=== PATIENT | male | born 1975 | race Caucasian/White ===

== ENCOUNTER 2019-08-24 04:56 | Emergency (ER) | payer OTHER ==
[2019-08-24 05:50] LABS: Absolute Lymphocytes (CBC) 2.4 K/uL (0.7-4.9); Basophils % 0.8 % (0-1.3); Hematocrit 38.6 % (39.6-49.0); Lymphocytes % 22.8 % (15.3-44.8); MPV 9.2 fL (7.6-11.3); RBC Red Blood Cell Count 4.73 M/uL (4.33-5.43)
[2019-08-24] MEDS ORDERED: MORPHINE 4 MG/ML SYR ONE (05:53)
[2019-08-24] MEDS ORDERED: ONDANSETRON 4 MG/2 ML VIAL ONE (05:53)
[2019-08-24] MEDS ORDERED: FAMOTIDINE 20 MG/2 ML VIAL IV ONE (05:53)
[2019-08-24 06:25] LABS: ALT/SGPT 57 U/L (12-78); Albumin 4.1 g/dL (3.4-5.0); Alkaline Phosphatase 62 U/L (45-117); BUN Blood Urea Nitrogen 25 mg/dL (7-18); Bicarbonate 24 mmol/L (21-32); Bilirubin Direct < 0.1 mg/dL (0-0.2); Bilirubin Total 0.3 mg/dL (0.2-1.0); Glucose Level 111 mg/dL (74-106); Lipase 75 U/L (73-393); Protein, Total 7.2 g/dL (6.4-8.2); Sodium Level 141 mmol/L (136-145)
[2019-08-24 06:26] LABS: AST/SGOT 32 U/L (15-37); Potassium 4.2 mmol/L (3.5-5.1)
[2019-08-24 06:45] LABS: Urine Blood NEGATIVE (NEG); Urine Glucose NEGATIVE (NEG); Urine Protein NEGATIVE (NEG); Urine Specific Gravity >1.030 (1.005-1.030); Urine pH 5.5 (5.0-7.0)
--- NOTE | 2019-08-24 07:20 | RAD REPORT ---
EXAM DESCRIPTION: CTAbdomen Pelvis W Contrast - 08/24/2019 7:09 am CLINICAL HISTORY: Abdominal pain. ABD PAIN COMPARISON: Spine Lumbar Wo Con dated 08/24/2019; Thoracic Spine W/o Cont dated 08/24/2019 TECHNIQUE: Biphasic CT imaging of the abdomen and pelvis was performed with 100 ml non-ionic IV cont rast. All CT scans are performed using dose optimization technique as appropriate and may include automated exposure control or mA/KV adjustment according to patient size. FINDINGS: The lung bases are clear. The liver demonstrates diffuse fatty infiltration. Spleen, pancreas, adrenal glands and right kidney are within normal limits. Exophytic benign-appearing cyst left kidney measuring 25 mm projecting late rally. No bowel obstruction, free air, free fluid or abscess. Prominent diverticulosis of the sigmoid colon is present. No definitive evidence of diverticulitis The appendix is normal. No evidence of signific ant lymphadenopathy. No suspicious bony findings. IMPRESSION: Diffuse fatty liver. Prominent sigmoid diverticulosis colon without definitive evidence of diverticulitis.
--- NOTE | 2019-08-24 07:22 | RAD REPORT ---
EXAM DESCRIPTION: CT - Thoracic Spine W/o Cont - 08/24/2019 7:08 am CLINICAL HISTORY: Radiculopathy. PAIN COMPARISON: No comparisons TECHNIQUE: Axial CT imaging through the thoracic spine was performed with coronal and sagittal re-fo rmatted images. All CT scans are performed using dose optimization technique as appropriate and may include automated exposure control or mA/KV adjustment according to patient size. FINDINGS: Vertebral body heights are maintained. A compression fracture is not present. Mild disc th inning throughout the thoracic spine particularly in the midthoracic levels with small endplate osteo phytes compatible with mild spondylosis. Thoracic spine alignment is within normal limits. No paraspinal masses or hematoma. Intervertebral disc detail is inherently limited on CT without gross findings of canal compromise. IMPRESSION: No acute thoracic spine abnormality discerned. Mild midthoracic spondylosis.
--- NOTE | 2019-08-24 07:23 | RAD REPORT ---
EXAM DESCRIPTION: CT - Spine Lumbar Wo Con - 08/24/2019 7:08 am CLINICAL HISTORY: Radiculopathy. PAIN COMPARISON: No comparisons TECHNIQUE: Axial noncontrast CT imaging of the lumbar spine was performed with coronal and sagittal re-formatted images. All CT scans are performed using dose optimization technique as appropriate and may include automated exposure control or mA/KV adjustment according to patient size. FINDINGS: No acute lumbar spine fracture seen. No aggressive marrow pattern or malalignment. Paraspinal tissues are normal in thickness. No paraspinal abscess or hematoma seen. Mild posterior disc bulges are seen lower lumbar levels. Prominent facet hypertrophy is present L5-S1 bilaterally. IMPRESSION: No acute lumbar spine abnormality. Mild lower lumbar spondylosis is suspected.
--- NOTE | 2019-08-24 07:40 | ER ---
Nurse's Notes [facility] Name: Ciaran Jean-Baptiste Age: 43 yrs Sex: Male : 1975 Arrival Date: 08/24/2019 Time: 04:59 Bed 5 Private MD: Diagnosis: Low back pain;Abdominal and pelvic pain Presentation: 08/23 05:10 Chief complaint: Patient states: Hx of chronic back pain which was service related. Now wh progressively getting worse this past few days. Pt C/O burning, sharp, radiating pain that makes him have bowel urges. Coronavirus screen: Proceed with normal triage. Patient denies a cough. Patient denies shortness of breath or difficulty breathing. Patient denies measured and/or subjective temperature greater than 100.4F prior to today's visit. Patient denies travel on a cruise ship or to a country the [facility] currently lists as an affected area. Patient denies contact with known and/or suspected case of COVID-19. Ebola Screen: Patient negative for fever greater than or equal to 101.5 degrees Fahrenheit, and additional compatible Ebola Virus Disease symptoms Patient denies exposure to infectious person. Initial Sepsis Screen: Does the patient meet any 2 criteria? HR > 90 bpm. Does the patient have a suspected source of infection? No. Patient's initial sepsis screen is negative. Risk Assessment: Do you want to hurt yourself or someone else? Patient reports no desire to harm self or others. Onset of symptoms was August 24, 2019. 05:10 Method Of Arrival: Ambulatory 05:10 Acuity: JOHNNY 3 Historical: - Allergies: 05:14 No Known Allergies; - Home Meds: 05:14 None [Active]; - PMHx: 05:14 Chronic Back Pain; Hypertension; High Cholesterol; - Immunization history:: Adult Immunizations unknown. - Social history:: Smoking status: Patient uses alcohol, admits to "couple of beers" a day. Patient/guardian denies using. Screenin:15 Abuse screen: Denies threats or abuse. Denies injuries from another. Nutritional screening: No deficits noted. Tuberculosis screening: No symptoms or risk factors identified. Fall Risk None identified. Assessment: 05:14 General: Appears in no apparent distress. Behavior is calm, cooperative, appropriate for age. Pain: Complains of pain in lumbar area, left mid back and right mid back Pain radiates to abdomen Pain currently is 8 out of 10 on a pain scale. Quality of pain is described as burning, aching, radiating, sharp. Neuro: Level of Consciousness is awake, alert, obeys commands, Oriented to person, place, time, situation, Appropriate for age. Cardiovascular: Capillary refill < 3 seconds. Respiratory: Airway is patent Respiratory effort is even, unlabored, Respiratory pattern is regular, symmetrical. GI: Abdomen is flat, non-distended. : No signs and/or symptoms were reported regarding the genitourinary system. EENT: No signs and/or symptoms were reported regarding the EENT system. Derm: Skin is intact, is healthy with good turgor, Skin is pink, warm \\T\\ dry. normal. Musculoskeletal: Circulation, motion, and sensation intact. 06:30 Reassessment: Patient appears in no apparent distress at this time. No changes from previously documented assessment. Patient and/or family updated on plan of care and expected duration. Pain level reassessed. Patient is alert, oriented x 3, equal unlabored respirations, skin warm/dry/pink. 07:27 Reassessment: Patient appears in no apparent distress at this time. Patient and/or em family updated on plan of care and expected duration. Pain level reassessed. Patient is alert, oriented x 3, equal unlabored respirations, skin warm/dry/pink. Patient states feeling better. Vital Signs: 05:10 BP 150 / 95; Pulse 96; Resp 18; Temp 98.5; Pulse Ox 99% ; Weight 99.79 kg; Height 5 ft. 6 in. (167.64 cm); Pain 8/10; 06:30 BP 115 / 88; Pulse 76; Resp 18; Pulse Ox 95% on R/A; 07:29 BP 137 / 93; Pulse 70; Resp 16; Pulse Ox 99% on R/A; Pain 5/10; em 05:10 Body Mass Index 35.51 (99.79 kg, 167.64 cm) ED Course: 04:59 Patient arrived in ED. ds1 05:00 Jael Albert is Primary Nurse. 05:12 Triage completed. 05:15 Arm band placed on right wrist. 05:15 Patient has correct armband on for positive identification. Bed in low position. Call light in reach. Side rails up X 1. Pulse ox on. NIBP on. 05:21 Ammon Abreu MD is Attending Physician. [facility] 05:30 Inserted saline lock: 20 gauge in right antecubital area, using aseptic technique. Blood collected. 07:06 Report received from RUKHSANA Elder. aleja 07:08 CT Thoracic Spine Wo Cont In Process Unspecified. EDMS 07:08 CT Lumbar Spine Wo Con In Process Unspecified. EDMS 07:09 CT Abd/Pelvis - IV Contrast Only In Process Unspecified. EDMS 07:20 Attending Physician role handed off by Ammon Abreu MD [facility] 07:20 Layo Gupta MD is Attending Physician. kdr 08:03 No provider procedures requiring assistance completed. IV discontinued, intact, em bleeding controlled, No redness/swelling at site. Pressure dressing applied. Administered Medications: 05:50 Drug: Pepcid 20 mg Route: IVP; Site: right antecubital; 07:27 Follow up: Response: No adverse reaction em 05:52 Drug: morphine 4 mg {Note: RASS 0.} Route: IVP; Site: right antecubital; 07:27 Follow up: Response: No adverse reaction; Marked relief of symptoms; Pain is decreased; em RASS: Alert and Calm (0) 05:54 Drug: Zofran (Ondansetron) 4 mg Route: IVP; Site: right antecubital; 07:27 Follow up: Response: No adverse reaction em Outcome: 07:39 Discharge ordered by . kdr 08:03 Discharged to home ambulatory. em 08:03 Condition: good 08:03 Discharge instructions given to patient, Instructed on discharge instructions, follow up and referral plans. medication usage, Demonstrated understanding of instructions, follow-up care, medications, Prescriptions given X 3. 08:05 Patient left the ED. em Signatures: Dispatcher [employer] [facility] Layo Gupta MD MD kdr Munoz, Edgar, RN RN em Sanford, Demi ds1 Bryson, James, RN RN Jael Fermin Ammon Abreu MD MD Alejandro
--- NOTE | 2019-08-24 07:40 | EDPHYS ---
Physician Documentation [facility] Name: Ciaran Jean-Baptiste Age: 43 yrs Sex: Male : 1975 Arrival Date: 08/24/2019 Time: 04:59 Bed 5 Private MD: ED Physician Layo Gupta HPI: 08/23 05:49 This 43 yrs old Male presents to ER via Ambulatory with complaints of Back mh7 Pain. 05:49 The patient presents with pain that is acute, with no known mechanism of injury. The mh7 symptoms are located in the lumbar area. Onset: The symptoms/episode began/occurred 3 day(s) ago. The pain radiates to the abdomen. Associated signs and symptoms: Pertinent positives: abdominal pain, Pertinent negatives: chest pain, constipation, dysuria, fever, headache, hematuria, incontinence, nausea, numbness, tingling, urinary retention, vomiting, weakness. The problem was sustained from unknown cause. Modifying factors: The patient symptoms are alleviated by nothing, the patient symptoms are aggravated by any movement. Severity of symptoms: At their worst the symptoms were moderate, last night, in the emergency department the symptoms are unchanged. The patient has experienced similar episodes in the past, multiple times. Historical: - Allergies: 05:14 No Known Allergies; - Home Meds: 05:14 None [Active]; - PMHx: 05:14 Chronic Back Pain; Hypertension; High Cholesterol; - Immunization history:: Adult Immunizations unknown. - Social history:: Smoking status: Patient uses alcohol, admits to "couple of beers" a day. Patient/guardian denies using. ROS: 05:49 Constitutional: Negative for fever, chills, and weight loss, Eyes: Negative for injury, mh7 pain, redness, and discharge, ENT: Negative for injury, pain, and discharge, Neck: Negative for injury, pain, and swelling, Cardiovascular: Negative for chest pain, palpitations, and edema, Respiratory: Negative for shortness of breath, cough, wheezing, and pleuritic chest pain, : Negative for injury, bleeding, discharge, and swelling, MS/Extremity: Negative for injury and deformity, Skin: Negative for injury, rash, and discoloration, Neuro: Negative for headache, weakness, numbness, tingling, and seizure, Psych: Negative for depression, anxiety, suicide ideation, homicidal ideation, and hallucinations, Allergy/Immunology: Negative for hives, rash, and allergies, Endocrine: Negative for neck swelling, polydipsia, polyuria, polyphagia, and marked weight changes, Hematologic/Lymphatic: Negative for swollen nodes, abnormal bleeding, and unusual bruising. Exam: 05:49 Constitutional: This is a well developed, well nourished patient who is awake, alert, mh7 and in no acute distress. Head/Face: Normocephalic, atraumatic. Eyes: Pupils equal round and reactive to light, extra-ocular motions intact. Lids and lashes normal. Conjunctiva and sclera are non-icteric and not injected. Cornea within normal limits. Periorbital areas with no swelling, redness, or edema. Neck: Trachea midline, no thyromegaly or masses palpated, and no cervical lymphadenopathy. Supple, full range of motion without nuchal rigidity, or vertebral point tenderness. No Meningismus. Chest/axilla: Normal chest wall appearance and motion. Nontender with no deformity. No lesions are appreciated. Cardiovascular: Regular rate and rhythm with a normal S1 and S2. No gallops, murmurs, or rubs. Normal PMI, no JVD. No pulse deficits. Respiratory: Lungs have equal breath sounds bilaterally, clear to auscultation and percussion. No rales, rhonchi or wheezes noted. No increased work of breathing, no retractions or nasal flaring. 05:49 Skin: Warm, dry with normal turgor. Normal color with no rashes, no lesions, and no evidence of cellulitis. MS/ Extremity: Pulses equal, no cyanosis. Neurovascular intact. Full, normal range of motion. Neuro: Awake and alert, GCS 15, oriented to person, place, time, and situation. Cranial nerves II-XII grossly intact. Motor strength 5/5 in all extremities. Sensory grossly intact. Cerebellar exam normal. Normal gait. Psych: Awake, alert, with orientation to person, place and time. Behavior, mood, and affect are within normal limits. 05:49 Abdomen/GI: Inspection: abdomen appears normal, obese Bowel sounds: normal, in all quadrants, Palpation: moderate abdominal tenderness, in the epigastric area and right upper quadrant, Rectal exam: the exam is deferred, because of patient request, Indicators: McBurney's point is not tender, Sheffield's sign is negative, Rovsing's sign is negative, Obturator sign is negative, Psoas sign is negative, Liver: no appreciated palpable abnormalities, Hernia: not appreciated. 05:49 Back: pain, that is moderate, of the lumbar area, ROM is painful, with all movement, normal spinal alignment noted, CVA tenderness, is absent, vertebral tenderness, is appreciated at lumbar area, muscle spasm, is not present, Straight leg raises: of both lower extremities does not illicit pain. 05:58 ECG was reviewed by the Attending Physician. [facility] Vital Signs: 05:10 BP 150 / 95; Pulse 96; Resp 18; Temp 98.5; Pulse Ox 99% ; Weight 99.79 kg; Height 5 ft. wh 6 in. (167.64 cm); Pain 8/10; 06:30 BP 115 / 88; Pulse 76; Resp 18; Pulse Ox 95% on R/A; wh 07:29 BP 137 / 93; Pulse 70; Resp 16; Pulse Ox 99% on R/A; Pain 5/10; em 05:10 Body Mass Index 35.51 (99.79 kg, 167.64 cm) MDM: 05:32 Patient medically screened. [facility] 07:37 Data reviewed: vital signs, nurses notes, lab test result(s), radiologic studies. kdr Counseling: I had a detailed discussion with the patient and/or guardian regarding: the historical points, exam findings, and any diagnostic results supporting the discharge/admit diagnosis, lab results, radiology results, the need for outpatient follow up. ED course: The patient is feeling better though not totally resolved pain. He states it is back to his usual level of chronic pain. 08/23 05:33 Order name: Basic Metabolic Panel; Complete Time: 06:32 7 08/23 05:33 Order name: CBC with Diff 7 08/23 05:33 Order name: Hepatic Function; Complete Time: 06:32 7 08/23 05:33 Order name: Lipase; Complete Time: 06:32 7 08/23 05:50 Order name: Urine Dipstick--Ancillary (enter results); Complete Time: 06:51 mw2 08/23 05:58 Order name: CT Thoracic Spine Wo Cont; Complete Time: 07:27 7 08/23 05:33 Order name: IV Saline Lock; Complete Time: 05:55 08/23 05:33 Order name: Labs collected and sent; Complete Time: 05:55 08/23 05:33 Order name: Urine Dipstick-Ancillary (obtain specimen); Complete Time: 05:55 08/23 05:58 Order name: CT Lumbar Spine Wo Con; Complete Time: 07:27 08/23 05:58 Order name: CT Abd/Pelvis - IV Contrast Only; Complete Time: 07: 08/23 05:33 Order name: EKG - Nurse/Tech; Complete Time: :55 mh EC:58 Rate is 80 beats/min. Rhythm is regular, Normal Sinus Rhythm. QRS [place] is Normal. AR mh7 interval is normal. QRS interval is normal. QT interval is normal. No Q waves. T waves are Normal. No ST changes noted. Clinical impression: Normal ECG. Administered Medications: 05:50 Drug: Pepcid 20 mg Route: IVP; Site: right antecubital; 07:27 Follow up: Response: No adverse reaction em 05:52 Drug: morphine 4 mg {Note: RASS 0.} Route: IVP; Site: right antecubital; 07:27 Follow up: Response: No adverse reaction; Marked relief of symptoms; Pain is decreased; em RASS: Alert and Calm (0) 05:54 Drug: Zofran (Ondansetron) 4 mg Route: IVP; Site: right antecubital; 07:27 Follow up: Response: No adverse reaction em Disposition: 08/24/19 07:39 Discharged to Home. Impression: Low back pain, Abdominal and pelvic pain. - Condition is Stable. - Discharge Instructions: Abdominal Pain, Adult, Back Pain, Adult. - Prescriptions for Robaxin 500 mg Oral Tablet - take 2 tablets by ORAL route every 6 hours As needed For night time use; 40 tablet. Tylenol- Codeine #3 300-30 mg Oral Tablet - take 2 tablets by ORAL route every 6 hours As needed For night time use; 16 tablet. Diclofenac Sodium 75 mg Oral Tablet, Delayed Release (E.C.) - take 1 tablet by ORAL route 2 times per day For daytime use; 30 tablet. - Medication Reconciliation Form, Thank You Letter, Prescription Opioid Use form. - Follow up: Private Physician; When: 2 - 3 days; Reason: If symptoms return, Further diagnostic work-up, Recheck today's complaints, Continuance of care, Re-evaluation by your physician. - Problem is an acute exacerbation. - Symptoms have improved. Signatures: Dispatcher [employer] Layo Saba MD MD kdr Scottie Perry, RN RN Jael Rogers Maurice, MD MD mh7 Corrections: (The following items were deleted from the chart) 08:05 07:39 08/24/2019 07:39 Discharged to Home. Impression: Low back pain; Abdominal and em pelvic pain. Condition is Stable. Forms are Medication Reconciliation Form, Thank You Letter, Antibiotic Education, Prescription Opioid Use. Follow up: Private Physician; When: 2 - 3 days; Reason: If symptoms return, Further diagnostic work-up, Recheck today's complaints, Continuance of care, Re-evaluation by your physician. Problem is an acute exacerbation. Symptoms have improved. kdr
[2019-08-24 08:13] VITALS: TEMP 98.5; O2SAT 99
[2019-08-24 08:16] VITALS: BP 137/93
[2019-08-24 10:05] LABS: Blood Morphology Comment NOT SEEN (NOT SEEN); Platelet Estimate ADEQ
--- NOTE | 2019-08-24 20:59 | EKG ---
Test Date: 2019-08-24 Test Time: 05:48:42 Dial Equipment Engineer: SOPHIE MEASUREMENT RESULTS: Intervals: Rate: 80 WA: 182 QRSD: 86 QT: 378 QTc: 435 [place]: P: 71 WA: 182 QRS: 45 T: 45 INTERPRETIVE STATEMENTS: Normal sinus rhythm with sinus arrhythmia Normal ECG No previous ECG available for comparison Electronically Signed On 08-24-19 20:57:00 CDT by Leonard Osborn
== END 2019-08-24 08:05 | disposition home or self-care (01) ==
LOC: ER 04:56
DX: R10.2 Pelvic and perineal pain (principal); I10 Essential (primary) hypertension; G89.29 Other chronic pain
CPT/HCPCS: 93005; 85025; 80048; 36415; 80076; 81003; 83690; 72131; 72128; 74177; 96375; 96374; 99284; Q9967; J2405

== ENCOUNTER 2019-10-25 11:29 | Emergency (ER) | payer OTHER ==
--- OUTSIDE RECORDS SUMMARY | 2019-10-25 11:31 | XMS REPORT | Continuity of Care Document ---
:1975 Author Organization [facility] t Address [address] [place] [address] Care Team Providers Name Role Phone Unavailable Unavailable Unavailable Problems This patient has no known problems. Allergies, Adverse Reactions, Alerts This patient has no known allergies or adverse reactions. Medications This patient has no known medications. Procedures This patient has no known procedures. Encounters Start End Encounter Admission Attending Care Care Encounter Source Date/Time Date/Time Type Type Clinicians Facility Department ID 2019-05-30 2019-05-30 Emergency E [id number] 10:30:00 10:30:00 Results This patient has no known results.
[2019-10-25 12:05] LABS: Basophils % 1.2 % (0-1.3); Hematocrit 38.7 % (39.6-49.0); Lymphocytes % 32.8 % (15.3-44.8); MPV 9.7 fL (7.6-11.3)
--- NOTE | 2019-10-25 12:14 | RAD REPORT ---
EXAM DESCRIPTION: RAD - Chest Single View - 10/25/2019 11:58 am CLINICAL HISTORY: Cough;Dyspnea COMPARISON: None TECHNIQUE: AP portable chest image was obtained 10/25/2019 11:58 am . FINDINGS: Lungs are clear. Heart and vasculature are normal. No measurable pleural effusion and no p neumothorax. No acute bony abnormality seen. No acute aortic findings suspected. IMPRESSION: No acute cardiopulmonary process. Fullness of the left hilum is probably normal summation of vasculature. As warranted, follow-up two v iew imaging could be performed.
[2019-10-25 12:18] LABS: BUN Blood Urea Nitrogen 23 mg/dL (7-18); Bicarbonate 25 mmol/L (21-32); Glucose Level 131 mg/dL (74-106); Sodium Level 142 mmol/L (136-145); Troponin (Emerg Dept Use Only) < 0.02 ng/mL (0.0-0.045)
[2019-10-25 12:23] LABS: NT PRO-BNP < 5 pg/mL (<125)
--- NOTE | 2019-10-25 12:49 | RAD REPORT ---
EXAM DESCRIPTION: CT - Soft Tissue Neck W/Contr CLINICAL HISTORY: trouble swallowing Dysphagia, neck pain and swelling COMPARISON: Thoracic Spine W/o Cont dated 08/24/2019; Abdomen Pelvis W Contrast dated 08/24/[address] scans are performed using dose optimization technique as appropriate and may includ e automated exposure control or mA/KV adjustment according to patient size. FINDINGS: Nasopharyngeal tissues are normal in appearance. Fossa Rosenmller are normal. Small tonsilliths are present bilaterally in the palatine tonsils. No bulky adenopathy in the neck. Salivary glands are normal in appearance. No prevertebral fluid collections. Multilevel mild degenerative changes affect the cervical spine tricia ear IMPRESSION: No significant abnormality discerned.
--- NOTE | 2019-10-25 13:04 | EDPHYS ---
Physician Documentation [facility] Name: Ciaran Jean-Baptiste Age: 43 yrs Sex: Male : 1975 Arrival Date: 10/25/2019 Time: 11:31 Bed 2 Private MD: ED Physician Severo Oliveros HPI: 10/24 12:56 This 43 yrs old Male presents to ER via EMS with complaints of Dizziness, rn Shortness Of Breath. 12:56 The patient has shortness of breath at rest, that woke him/her from sleep. Onset: The rn symptoms/episode began/occurred 9 month(s) ago. Duration: The symptoms are intermittent. The patient's shortness of breath is aggravated by swallowing. Severity of symptoms: At their worst the symptoms were moderate in the emergency department the symptoms have improved. The patient has experienced similar episodes in the past. Reports sob, states for last 9 months wake sup from sleep, feels like can't swallow his spit, then feels like sob, goes away on its own when he stands up and makes himself swallow. No fever. NO weight loss. Reports has been told needs ENT evaluation for this problem, but is [facility] and states still waiting on appointment. Was at work today and had another episode of trouble swallowing and then began to feel sob, resolved by time he got here, no meds given by EMS. Denies chest pain. + long time smoker in past. . Historical: - Allergies: 11:20 No Known Allergies; rb1 - Home Meds: 11:20 Multiple Vitamins oral oral [Active]; Vitamin C Oral [Active]; Fish Oil oral oral rb1 [Active]; - PMHx: 11:20 chronic back pain; High Cholesterol; Hypertension; IBS; Acid Reflux; chronic Bronchitis;rb1 - PSHx: 11:20 None; rb1 - Immunization history:: Adult Immunizations up to date. - Social history:: Smoking status: Patient/guardian denies using. - Family history:: not pertinent. - Hospitalizations: : No recent hospitalization is reported. ROS: 12:56 Constitutional: Negative for fever, chills, and weight loss, Eyes: Negative for injury, rn pain, redness, and discharge, Cardiovascular: Negative for chest pain, palpitations, and edema, Respiratory: Negative for wheezing, and pleuritic chest pain, Abdomen/GI: Negative for abdominal pain, nausea, vomiting, diarrhea, and constipation, MS/Extremity: Negative for injury and deformity, Skin: Negative for injury, rash, and discoloration, Neuro: Negative for headache, weakness, numbness, tingling, and seizure. Exam: 12:17 ECG was reviewed by the Attending Physician. rn 12:56 Constitutional: This is a well developed, well nourished patient who is awake, alert, rn and in no acute distress. Head/Face: Normocephalic, atraumatic. Eyes: Pupils equal round and reactive to light, extra-ocular motions intact. Lids and lashes normal. Conjunctiva and sclera are non-icteric and not injected. Cornea within normal limits. Periorbital areas with no swelling, redness, or edema. ENT: No stridor Neck: Trachea midline, no thyromegaly or masses palpated, and no cervical lymphadenopathy. Supple, full range of motion without nuchal rigidity, or vertebral point tenderness. No Meningismus. Cardiovascular: Regular rate and rhythm. No pulse deficits. Respiratory: Speaking full sentences. Unlabored. No increased work of breathing, no retractions or nasal flaring. Abdomen/GI: soft, non-tender MS/ Extremity: Pulses equal, no cyanosis. Neurovascular intact. Full, normal range of motion. Equal circumference. Neuro: Awake and alert, GCS 15, oriented to person, place, time, and situation. Cranial nerves II-XII grossly intact. Motor strength 5/5 in all extremities. Sensory grossly intact. Vital Signs: 11:20 BP 157 / 107; Pulse 92; Resp 20; Temp 97.8(O); Pulse Ox 97% on R/A; Weight 107.05 kg rb1 (R); Height 5 ft. 6 in. (167.64 cm) (R); Pain 5/10; 12:30 BP 132 / 91; Pulse 91; Resp 19; Pulse Ox 95% on R/A; rb1 13:04 BP 124 / 87; Pulse 91; Resp 20; Pulse Ox 95% on R/A; rb1 11:20 Body Mass Index 38.09 (107.05 kg, 167.64 cm) rb1 MDM: 11:35 Patient medically screened. rn 12:56 Differential diagnosis: smoking related problems, acid reflux with dysphagia/esophageal rn stricture. Anxiety. Vocal chord problem. Data reviewed: vital signs, nurses notes. 13:02 Counseling: I had a detailed discussion with the patient and/or guardian regarding: the rn historical points, exam findings, and any diagnostic results supporting the discharge/admit diagnosis, lab results, radiology results, the need for outpatient follow up, to return to the emergency department if symptoms worsen or persist or if there are any questions or concerns that arise at home. Response to treatment: the patient's symptoms have markedly improved after treatment, the patient's condition has returned to base line, the patient is now symptom free, and as a result, I will discharge patient. Special discussion: I discussed with the patient/guardian in detail that at this point there is no indication for admission to the hospital. It is understood, however, that if the symptoms persist or worsen the patient needs to return immediately for re-evaluation. Based on the history and exam findings, there is no indication for further emergent testing or inpatient evaluation. I discussed with the patient/guardian the need to see the ENT specialist for further evaluation of the symptoms. I discussed with the patient/guardian the need to see the lead c developer for further evaluation of the symptoms. 10/24 11:36 Order name: CBC with Diff; Complete Time: 12:17 10/24 11:36 Order name: Basic Metabolic Panel; Complete Time: 12:26 10/24 11:36 Order name: BNP; Complete Time: 12:26 10/24 11:36 Order name: Troponin (emerg Dept Use Only); Complete Time: 12:26 10/24 11:36 Order name: XRAY Chest (1 view); Complete Time: 12:17 10/24 11:36 Order name: CT Soft Tissue Neck W/contr; Complete Time: 12:56 10/24 11:36 Order name: IV Start; Complete Time: 11:46 rn 10/24 11:36 Order name: EKG; Complete Time: 11:37 10/24 11:36 Order name: EKG - Nurse/Tech; Complete Time: 12:07 rn EC:17 Rate is 88 beats/min. Rhythm is regular. QRS [place] is Normal. IA interval is normal. QRS rn interval is normal. QT interval is normal. No Q waves. T waves are Normal. No ST changes noted. Clinical impression: Normal ECG. Interpreted by me. Reviewed by me. Administered Medications: No medications were administered Disposition: 10/25/19 13:03 Discharged to Home. Impression: Gastro-esophageal reflux disease, Dysphagia, Shortness of breath. - Condition is Stable. - Discharge Instructions: Dysphagia, Gastroesophageal Reflux Disease, Adult. - Prescriptions for Protonix 40 mg Oral Tablet - take 1 tablet by ORAL route once daily; 30 tablet. - Medication Reconciliation Form, Thank You Letter, Antibiotic Education, Prescription Opioid Use form. - Follow up: Roger Carr MD; When: As needed; Reason: Recheck today's complaints, Re-evaluation by your physician. - Problem is an ongoing problem. - Symptoms have improved. Signatures: Dispatcher [employer] EDMS Severo Oliveros MD MD rn Barber, Rebecca, RN RN rb1 Corrections: (The following items were deleted from the chart) 13:19 13:03 10/25/2019 13:03 Discharged to Home. Impression: Gastro-esophageal reflux rb1 disease; Dysphagia; Shortness of breath. Condition is Stable. Forms are Medication Reconciliation Form, Thank You Letter, Antibiotic Education, Prescription Opioid Use. Follow up: Roegr Carr; When: As needed; Reason: Recheck today's complaints, Re-evaluation by your physician. Problem is an ongoing problem. Symptoms have improved. rn
--- NOTE | 2019-10-25 13:04 | ER ---
Nurse's Notes [facility] Name: Ciaran Jean-Baptiste Age: 43 yrs Sex: Male : 1975 Arrival Date: 10/25/2019 Time: 11:31 Bed 2 Private MD: Diagnosis: Gastro-esophageal reflux disease;Dysphagia;Shortness of breath Presentation: 10/24 11:20 Chief complaint: EMS states: Pt. is 43 yr. old, was at work when he started feeling rb1 SOB, dizziness, and difficulty swallowing. History of HTN, chronic bronchitis, IBS, and Acid Reflux. BP 135/93, P 103, 96% 3 L NC, 12 -Lead showed SR. Has an 18 G R AC. Coronavirus screen: Client denies travel out of the [place] in the last 14 days. Ebola Screen: Patient denies travel to an Ebola-affected area in the 21 days before illness onset. Initial Sepsis Screen: Does the patient meet any 2 criteria? No. Patient's initial sepsis screen is negative. Does the patient have a suspected source of infection? No. Patient's initial sepsis screen is negative. Risk Assessment: Do you want to hurt yourself or someone else? Patient reports no desire to harm self or others. Onset of symptoms was October 25, 2019. 11:20 Method Of Arrival: EMS: [facility] rb1 11:20 Acuity: JOHNNY 3 rb1 Triage Assessment: 11:20 General: Appears in no apparent distress. comfortable, Behavior is calm, cooperative, rb1 Denies fever. Pain: Complains of pain in back and neck Pain currently is 5 out of 10 on a pain scale. Pain began chronic per pt report. EENT: Reports difficulty swallowing since ongoing for months. Neuro: Level of Consciousness is awake, alert, obeys commands, Oriented to person, place, time, situation. Cardiovascular: Capillary refill < 3 seconds. Respiratory: Reports shortness of breath cough that is non-productive, Airway is patent Respiratory effort is even, unlabored, Respiratory pattern is regular, symmetrical, Onset: The symptoms/episode began/occurred suddenly, the patient has mild shortness of breath. GI: No signs and/or symptoms were reported involving the gastrointestinal system. : No signs and/or symptoms were reported regarding the genitourinary system. Derm: Skin is pink, warm \T\ dry. Musculoskeletal: Range of motion: intact in all extremities. Historical: - Allergies: 11:20 No Known Allergies; rb1 - Home Meds: 11:20 Multiple Vitamins oral oral [Active]; Vitamin C Oral [Active]; Fish Oil oral oral rb1 [Active]; - PMHx: 11:20 chronic back pain; High Cholesterol; Hypertension; IBS; Acid Reflux; chronic Bronchitis;rb1 - PSHx: 11:20 None; rb1 - Immunization history:: Adult Immunizations up to date. - Social history:: Smoking status: Patient/guardian denies using. - Family history:: not pertinent. - Hospitalizations: : No recent hospitalization is reported. Screenin:20 Abuse screen: Denies threats or abuse. Nutritional screening: No deficits noted. rb1 Tuberculosis screening: No symptoms or risk factors identified. Fall Risk None identified. Assessment: 11:20 General: See triage assessment. rb1 12:07 Cardiovascular: Rhythm is sinus rhythm. rb1 Vital Signs: 11:20 BP 157 / 107; Pulse 92; Resp 20; Temp 97.8(O); Pulse Ox 97% on R/A; Weight 107.05 kg rb1 (R); Height 5 ft. 6 in. (167.64 cm) (R); Pain 5/10; 12:30 BP 132 / 91; Pulse 91; Resp 19; Pulse Ox 95% on R/A; rb1 13:04 BP 124 / 87; Pulse 91; Resp 20; Pulse Ox 95% on R/A; rb1 11:20 Body Mass Index 38.09 (107.05 kg, 167.64 cm) rb1 ED Course: 11:20 Arm band placed on right wrist. rb1 11:20 Patient has correct armband on for positive identification. Bed in low position. Call rb1 light in reach. Side rails up X 1. Pulse ox on. NIBP on. 11:20 Maintain EMS IV. Dressing intact. Good blood return noted. Site clean \T\ dry. Gauge \T\ rb 1 site: 18 R AC. 11:31 Patient arrived in ED. rb1 11:32 Kerrie Ochoa, RN is Primary Nurse. rb1 11:35 Severo Oliveros MD is Attending Physician. rn 11:37 Triage completed. rb1 11:58 XRAY Chest (1 view) In Process Unspecified. EDMS 12:32 CT Soft Tissue Neck W/contr In Process Unspecified. EDMS 13:03 Lilly, Roger, MD is Referral Physician. rn 13:18 No provider procedures requiring assistance completed. IV discontinued, intact, rb1 bleeding controlled, No redness/swelling at site. Pressure dressing applied. Administered Medications: No medications were administered Outcome: 13:03 Discharge ordered by . rn 13:18 Discharged to home ambulatory. rb1 13:18 Condition: stable 13:18 Discharge instructions given to patient, Instructed on discharge instructions, follow up and referral plans. medication usage, Demonstrated understanding of instructions, follow-up care, medications, Prescriptions given X 1. 13:19 Patient left the ED. rb1 Signatures: Dispatcher [employer] EDPR Severo Oliveros MD MD rn Barber, Rebecca, RN RN rb1
--- NOTE | 2019-10-26 12:26 | EKG ---
Test Date: 2019-10-25 Test Time: 12:04:15 Health Information Technician: JAIR MEASUREMENT RESULTS: Intervals: Rate: 88 [place]: 174 QRSD: 82 QT: 366 QTc: 442 [place]: P: 63 [place]: 174 QRS: 51 T: 71 INTERPRETIVE STATEMENTS: Normal sinus rhythm Normal ECG Compared to ECG 08/24/2019 05:48:42 Sinus arrhythmia no longer present Electronically Signed On 10-26-19 12:22:59 CDT by Leonard Osborn
== END 2019-10-25 13:19 | disposition home or self-care (01) ==
LOC: ER 11:29
DX: R06.02 Shortness of breath (principal); R13.10 Dysphagia, unspecified; K21.9 Gastro-esophageal reflux disease without esophagitis; Z87.891 Personal history of nicotine dependence
CPT/HCPCS: 93005; 85025; 80048; 36415; 84484; 83880; 70491; 71045; 99284; Q9967